=== PATIENT | male | born 1955 | race Caucasian/White ===

== ENCOUNTER 2019-12-05 19:24 | Inpatient (IN) | payer BC ==
[2019-12-05] MEDS ORDERED: ONDANSETRON HCL INJ/PF 4 MG/2 ML SDV IV ONE (20:41)
[2019-12-05] MEDS ORDERED: MORPHINE SULFATE 10 MG/ML INJ IV ONE (20:41)
[2019-12-05] MEDS ORDERED: NORMAL SALINE 1000 ML 1,000 ML IV ONE (20:41)
--- NOTE | 2019-12-05 20:43 | ER Document Report ---
ED GI/ - General Chief Complaint: Constipation Stated Complaint: ABDOMINAL PAIN Time Seen by Provider: 12/05/19 20:34 Notes: Patient is a 64-year-old male that comes to the emergency department for chief complaint of abdominal pain and swelling. He states that since Friday he started having abdominal pain and over the past 2 days his abdomen has become much more tender and swollen, pain is in the mid to lower abdomen mainly. He vomited once today, he had about 4-5 loose nonbloody stools today as well. He states he felt like he could not eat today. He states he also had some chills today. He denies chest pain, flank pain, difficulty breathing, urinary symptoms, or any other complaints. He states he has never had any surgeries in cluding abdominal, he does not take any medications, he believes he never went to a primary care provider. He smokes, he drinks alcohol about 3 times a week, he denies recreational drugs. Significant other at bedside. TRAVEL OUTSIDE OF THE [place] IN LAST 30 DAYS: No - Related Data Allergies/Adverse Reactions: No Known Allergies Allergy (Unverified 12/05/19 20:00) Past Medical History - General Information source: Patient - Social History Smoking Status: Current Every Day Smoker Frequency of alcohol use: Heavy Drug Abuse: None Lives with: Spouse/Significant other Family History: Reviewed & Not Pertinent Patient has suicidal ideation: No Patient has homicidal ideation: No Surgical Hx: Negative Review of Systems - Review of Systems Constitutional: No symptoms reported EENT: No symptoms reported Cardiovascular: No symptoms reported Respiratory: No symptoms reported Gastrointestinal: See HPI Genitourinary: No symptoms reported Male Genitourinary: No symptoms reported Musculoskeletal: No symptoms reported Skin: No symptoms reported Hematologic/Lymphatic: No symptoms reported Neurological/Psychological: No symptoms reported Physical Exam - Vital signs Vitals: Pulse Ox 93 12/05/19 19:40 - Notes Notes: GENERAL: Very disheveled, appears uncomfortable but is not in severe distress HEAD: Normocephalic, atraumatic. EYES: Pupils equal, round, and reactive to light. Extraocular movements intact. ENT: Oral mucosa very dry, tongue midline. Oropharynx unremarkable. Airway patent. LUNGS: Clear to auscultation bilaterally, no wheezes, rales, or rhonchi. No respiratory distress. HEART: Regular rate and rhythm. No murmur ABDOMEN: Abdomen is distended and moderately tender diffusely but there is no pa rticular area of guarding. Bowel sounds are still present but quiet. EXTREMITIES: Moves all 4 extremities spontaneously. No edema, normal radial and dorsalis pedis pulses bilaterally. No cyanosis. BACK: no cervical, thoracic, lumbar midline tenderness. No saddle anesthesia, normal distal neurovascular exam. Moves all extremities in full range of motion. NEUROLOGICAL: Alert and oriented x3. Normal speech. Cranial nerves II through XII grossly intact. PSYCH: Normal affect, normal mood. SKIN: Warm, dry, normal turgor. No rashes or lesions noted. Course - Re-evaluation Re-evalutation: Patient is disheveled, somewhat ill-appearing, appears to be uncomfortable, has a distended abdomen with diffuse tenderness. On reevaluation after IV fluids and medications patient is much more comfortable in appearance. CBC nonspecific with very elevated hemoglobin which I suspect is from dehydration and smoking. Urine does show 80 ketones and elevated specific gravity. Chemistry nonspecific with bicarb of 20 and borderline glucose. Acute abdominal series showing possible developing obstruction. CT with IV and oral contrast performed because of patient's concerning abdomen. Patient tolerated the contrast well and did not vomit. CAT scan results showing severe diverticulitis with a lot of inflammation which appears to be causing a partial small bowel obstruction. Patient has never had abdominal surgery. There is no abscess, perforation, or concerning finding otherwise. Started on antibiotics. Patient tolerated his p.o. without difficulty. I discussed with Dr. Salamanca. He recommends admission to the hospitalist. Discussed with patient and , they state strong agreement with this. Will discuss with hospitalist. Discussed with Dr. Woods, patient accepted to the medical floor full admission. - Vital Signs Vital signs: Temp Pulse Resp BP Pulse Ox 97.8 F 97 19 151/80 H 97 12/06/19 04:15 12/06/19 04:15 12/06/19 04:15 12/06/19 04:15 12/06/19 04:15 - Laboratory Result Diagrams: 12/05/19 19:36 12/05/19 19:36 Laboratory results interpreted by me: 12/05/19 12/05/19 12/05/19 19:36 19:36 22:20 Hgb 19.2 H Hct 55.6 H MCV 105 H MCH 36.2 H Seg Neuts % (Manual) 90 H Lymphocytes % (Manual) 5 L Monocytes % (Manual) 1 L Abs Lymphs (Manual) 0.3 L Carbon Dioxide 20 L Glucose 178 H Total Bilirubin 2.2 H Direct Bilirubin 0.9 H Lipase < 10.0 L Urine Protein 100 H Urine Glucose (UA) 50 H Urine Ketones 80 H Urine Bilirubin SMALL H Urine Urobilinogen 4.0 H Urine Ascorbic Acid 40 H Discharge - Discharge Clinical Impression: Diverticulitis, Partial small bowel obstruction, Dehydration Abdominal pain Qualifiers: Abdominal location: generalized Qualified Code(s): R10.84 - Generalized abdominal pain Condition: Stable Disposition: ADMITTED INPATIENT Admitting Provider: Chuck (Hospitalist) Unit Admitted: Medical Floor
[2019-12-05 21:16] LABS: ALBUMIN 3.7 g/dL (3.5-5.0); ALKALINE PHOSPHATASE 123 U/L (38-126); ANION GAP 14 (5-19); ASPARTATE AMINO TRANSFERASE 28 U/L (17-59); BILIRUBIN,DIRECT 0.9 mg/dL (0.0-0.4); BILIRUBIN,TOTAL 2.2 mg/dL (0.2-1.3); BLOOD UREA NITROGEN 14 mg/dL (7-20); CALCIUM 9.2 mg/dL (8.4-10.2); CARBON DIOXIDE 20 mmol/L (22-30); CHLORIDE 104 mmol/L (98-107); GLUCOSE 178 mg/dL (75-110)
[2019-12-05 21:29] LABS: HEMOGLOBIN 19.2 g/dL (13.5-17.0); MEAN CORPUSCULAR HEMOGLOBIN 36.2 pg (27.0-33.4); MEAN CORPUSCULAR HGB CONC 34.5 g/dL (32.0-36.0); MEAN CORPUSCULAR VOLUME 105 fl (80-97); PLATELET COUNT 237 10^3/uL (150-450); RED CELL DISTRIBUTION WIDTH 13.3 % (11.5-14.0); WHITE BLOOD COUNT 6.2 10^3/uL (4.0-10.5)
--- NOTE | 2019-12-05 21:43 | RADIOLOGY REPORT (SQ) ---
EXAM DESCRIPTION: XR ABDOMEN SUPINE AND ERECT WITH CHEST (ABD ACUTE SERIES) COMPLETED DATE/TME: 12/05/2019 20:40 CLINICAL HISTORY: 64 years Male ,abdominal pain and swelling COMPARISON: None. TECHNIQUE: Frontal view chest x-ray and two views of the abdomen. FINDINGS: The cardiomediastinal silhouette appears unremarkable. No consolidating infiltrates or pleural effusions. There is distention of small bowel centrally measuring approximately 3.8 cm. Findings are concerning for developing obstruction. No significant gas is seen in the distal small bowel. IMPRESSION: Findings suggesting developing small bowel obstruction
[2019-12-05 21:59] LABS: HEMATOCRIT 55.6 % (37.9-51.0)
[2019-12-05 22:04] LABS: ABSOLUTE LYMPHOCYTES# (MANUAL) 0.3 10^3/uL (0.5-4.7); ABSOLUTE MONOCYTES # (MANUAL) 0.1 10^3/uL (0.1-1.4); BAND NEUTROPHILS % (MANUAL) 4 % (3-5); BASOPHILS % (MANUAL) 0 % (0-2); EOSINOPHILS % (MANUAL) 0 % (0-6); LYMPHOCYTES % (MANUAL) 5 % (13-45); MONOCYTES % (MANUAL) 1 % (3-13); SEGMENTED NEUTROPHILS % (MAN) 90 % (42-78); TOTAL CELLS COUNTED 100
[2019-12-05 22:06] LABS: PLATELET COMMENT ADEQUATE; RBC MORPHOLOGY COMMENT NORMO-CYTIC/CHROMIC
[2019-12-05 22:56] LABS: APPEARANCE,URINE SLIGHTLY-CLOUDY; BILIRUBIN,URINE SMALL (NEGATIVE); COLOR,URINE AMBER; GLUCOSE, URINE 50 mg/dL (NEGATIVE); KETONES,URINE 80 mg/dL (NEGATIVE); LEUKOCYTE ESTERASE,URINE NEGATIVE (NEGATIVE); NITRITE,URINE NEGATIVE (NEGATIVE); PROTEIN,URINE 100 mg/dL (NEGATIVE)
[2019-12-06] MEDS ORDERED: NORMAL SALINE 1000 ML 1,000 ML IV ONE (00:19)
[2019-12-06] MEDS ORDERED: CIPROFLOXACIN 400 MG/D5W RTU 400 MG/200 ML RTUPB IV ONE (01:06)
--- NOTE | 2019-12-06 01:08 | RADIOLOGY REPORT (SQ) ---
EXAM DESCRIPTION: CT scan of the abdomen and pelvis with IV contrast CLINICAL HISTORY: 64 years Male; abdominal swelling, abnormal abd x-ray TECHNIQUE: CT of the abdomen and pelvis with intravenous contrast. Delayed imaging was also performed. All CT scans at this facility use dose modulation, iterative reconstruction, and/or weight based dosing when appropriate to reduce radiation dose to as low as reasonably achievable. This exam was performed according to our department optimization program which includes automated exposure control, adjustment of the mA and/or kv according to patient size and/or use of iterative reconstruction technique. COMPARISON: None. FINDINGS: Lower chest: Mild volume loss is present in the lung bases right greater than left. Heart size is within normal limits. Oral contrast is noted in the distal esophagus suggesting gastroesophageal reflux. Abdomen: Liver and biliary tree: Mild diffuse fatty infiltration of the liver. The gallbladder is unremarkable. Portal vein and hepatic veins are patent. Pancreas: Normal Spleen:Within normal limits Kidneys: Kidneys are normal in size, shape and position. No stones. No mass or hydronephrosis. Symmetric renal enhancement bilaterally. Adrenal glands:Within normal limits Vascular structures: Scattered vascular calcifications in the aorta and iliac vessels. Mesenteric vessels are patent. Retroperitoneum: No mass or lymphadenopathy Abdominal wall: Bilateral fat-containing inguinal hernias. GI: Bowel gas pattern is abnormal. There is diverticula in the colon and there is a long segment of inflammation involving the sigmoid colon with extensive pericolonic fat. Inflammation extends superiorly from the colon and results in bowel wall thickening in the small bowel which sits adjacent to the colon. Overall the findings result in a partial small bowel obstruction with the transition zone seen at the low pelvis. The bowel narrowing appears to be related to inflammation from the diverticulitis. Appendix: The appendix appears normal. General: Ascites is present in the pelvis and in the paracolic gutters bilaterally. No definitive free intraperitoneal air. No abscess. Pelvis: Lymph nodes: No mass or lymphadenopathy Bladder: The bladder is mostly empty Pelvis: No pelvic mass or adenopathy. Bones: L3 compression fracture is noted which appears chronic. No destructive bone changes. IMPRESSION: 1. Extensive inflammation involving the sigmoid colon in association with diverticula consistent with diverticulitis. This results in inflammation and narrowing of the small bowel adjacent to the colon and a subsequent partial small bowel obstruction. 2. Fatty infiltration of the liver. 3. Mild volume loss in the lung bases bilaterally. THIS REPORT CONTAINS FINDINGS THAT MAY BE CRITICAL TO PATIENT CARE: The findings were verbally discussed via telephone conference with CYRUS MARTIN at 12:05 AM CDT on 12/06/2019 .
[2019-12-06] MEDS ORDERED: METRONIDAZOLE 500 MG/NS RTU 500 MG/100 ML RTUPB IV ONE (01:30)
[2019-12-06] MEDS ORDERED: MORPHINE SULFATE 10 MG/ML INJ IV ONE (02:11)
[2019-12-06] MEDS ORDERED: ONDANSETRON HCL INJ/PF 4 MG/2 ML SDV IV ONE (02:11)
[2019-12-06] MEDS ORDERED: DEXTROSE 40% GEL 15 GM TUBE PO PRN ×2 (03:11)
[2019-12-06] MEDS ORDERED: GLUCAGON,HUMAN RECOMB 1 MG INJ SUBCUT PRN (03:11)
[2019-12-06] MEDS ORDERED: PROMETHAZINE HCL INJ 25 MG/1 ML VIAL IV PRN (03:11)
[2019-12-06] MEDS ORDERED: DEXTROSE 50%-WATER 25 GM/50 ML DISP.SYRIN IV PRN ×2 (03:11)
[2019-12-06] MEDS ORDERED: ACETAMINOPHEN 325 MG TABLET PO PRN (03:11)
[2019-12-06] MEDS ORDERED: LORAZEPAM INJ 2 MG/1 ML VIAL IV PRN (03:17)
--- NOTE | 2019-12-06 03:33 | PDOC H&P ---
History of Present Illness Admission Date/PCP: 12/06/19 02:42 Patient complains of: Abdominal pain History of Present Illness: AMARILIS AL is a 64 year old male his only past medical history is alcoholism. He reports that he felt fine . Friday he was having difficulty having a bowel movement. The pain began on Friday and worsened. On Friday he was having diarrhea and lost his appetite. Friday he felt better transiently but then got much worse. He started having fever and chills. His abdominal pain was increasing. He had had nothing by mouth for almost 2 days. He then proceeded to the emergency department. Evaluation revealed a normal white blood cell count but his hemoglobin was 19.2 with a hematocrit of 55.6. Platelets were normal at 237. His chemistry profile showed an elevated glucose at 178 with a total bilirubin of 2.2. CT scan of the abdomen revealed diverticulitis. He was referred to the hospital service for admission. Past Medical History Cardiac Medical History: Reports: None Psychiatric Medical History: Reports: Alcohol Dependency, Tobacco Dependency Past Surgical History Past Surgical History: Reports: None Social History Information Source: Patient Lives with: Spouse/Significant other Smoking Status: Current Every Day Smoker Electronic Cigarette use?: No Frequency of Alcohol Use: Social Hx Recreational Drug Use: No Hx Prescription Drug Abuse: No - Advance Directive Resuscitation Status: Full Code Surrogate healthcare decision maker:: The patient's would be the dedicated decision maker. Family History Family History: DM, Other - Alzheimer's Parental Family History Reviewed: Yes Children Family History Reviewed: Yes Sibling(s) Family History Reviewed.: Yes Medication/Allergy Allergies/Adverse Reactions: No Known Allergies Allergy (Unverified 12/05/19 20:00) Review of Systems All systems: reviewed and no additional remarkable complaints except as stated Constitutional: PRESENT: chills, fever(s) Gastrointestinal: PRESENT: abdominal pain, constipation Physical Exam Vital Signs: Temp Pulse Resp BP Pulse Ox 98.6 F 98 23 H 121/76 96 12/05/19 21:57 12/05/19 21:57 12/06/19 00:01 12/06/19 00:01 12/06/19 00:01 Intake & Output 12/04/19 12/05/19 12/06/19 05:59 06:59 06:59 Intake Total 2200 Balance 2200 Weight 63.5 kg General appearance: PRESENT: cooperative, mild distress, well-developed Head exam: PRESENT: atraumatic, normocephalic Eye exam: PRESENT: conjunctiva pink, EOMI, PERRLA. ABSENT: nystagmus, scleral icterus Ear exam: PRESENT: normal external ear exam. ABSENT: bleeding, drainage Mouth exam: PRESENT: dry mucosa, tongue midline, other - Lips are dry and cracked Teeth exam: PRESENT: poor dentation Neck exam: PRESENT: full ROM. ABSENT: carotid bruit, JVD, lymphadenopathy Respiratory exam: PRESENT: clear to auscultation carola, symmetrical, unlabored. ABSENT: prolonged expiratory phas, rales, rhonchi, tachypnea, wheezes Cardiovascular exam: PRESENT: RRR, +S1, +S2, systolic murmur - 2/6. ABSENT: diastolic murmur Pulses: PRESENT: normal radial pulses GI/Abdominal exam: PRESENT: distended, firm, hypoactive bowel sounds, tenderness - Throughout the abdomen. Greatest at the left lower quadrant.. ABSENT: guarding Rectal exam: PRESENT: deferred Gentrourinary exam: ABSENT: indwelling catheter Extremities exam: PRESENT: full ROM. ABSENT: clubbing, pedal edema Musculoskeletal exam: PRESENT: ambulatory, full ROM, normal inspection. ABSENT: deformity Neurological exam: PRESENT: alert, awake, oriented to person, oriented to place, oriented to time, oriented to situation, CN II-XII grossly intact. ABSENT: altered, motor sensory deficit Psychiatric exam: PRESENT: appropriate affect, normal mood. ABSENT: agitated, anxious Focused psych exam: ABSENT: delusional, paranoid, restlessness Skin exam: PRESENT: dry, normal color, warm. ABSENT: rash Results Laboratory Results: 12/05/19 19:36 12/05/19 19:36 12/05/19 12/05/19 12/05/19 19:36 19:36 22:20 WBC 6.2 RBC 5.30 Hgb 19.2 H Hct 55.6 H MCV 105 H MCH 36.2 H MCHC 34.5 RDW 13.3 Plt Count 237 Seg Neutrophils % Not Reportable Sodium 137.9 Potassium 4.0 Chloride 104 Carbon Dioxide 20 L Anion Gap 14 BUN 14 Creatinine 0.59 Est GFR ( Amer) > 60 Glucose 178 H Calcium 9.2 Total Bilirubin 2.2 H AST 28 Alkaline Phosphatase 123 Total Protein 7.0 Albumin 3.7 Lipase < 10.0 L Urine Color [place] Urine Appearance SLIGHTLY-CLOUDY Urine pH 5.0 Ur Specific [place] 1.030 Urine Protein 100 H Urine Glucose (UA) 50 H Urine Ketones 80 H Urine Blood NEGATIVE Urine Nitrite NEGATIVE Ur Leukocyte Esterase NEGATIVE Urine WBC (Auto) 7 Urine RBC (Auto) 3 Impressions: Abdomen/Pelvis CT 12/05/19 00:00 IMPRESSION: 1. Extensive inflammation involving the sigmoid colon in association with diverticula consistent with diverticulitis. This results in inflammation and narrowing of the small bowel adjacent to the colon and a subsequent partial small bowel obstruction. 2. Fatty infiltration of the liver. 3. Mild volume loss in the lung bases bilaterally. THIS REPORT CONTAINS FINDINGS THAT MAY BE CRITICAL TO PATIENT CARE: The findings were verbally discussed via telephone conference with CYRUS MARTIN at 12:05 AM CDT on 12/06/2019 . Acute Abdomen Series 12/05/19 20:40 IMPRESSION: Findings suggesting developing small bowel obstruction Assessment and Plan - Diagnosis (1) Diverticulitis Is this a current diagnosis for this admission?: Yes Plan: 12/06/2019 Extensive inflammatory changes by CT scan. So much so that it may be causing a partial small bowel obstruction. Ciprofloxacin and metronidazole have begun. Patient will be n.p.o. for the time being. Aggressive IV fluids. (2) Partial small bowel obstruction Is this a current diagnosis for this admission?: Yes Plan: 12/06/2019 It appears to be related to the inflammation in the colon. The patient will be at bowel rest. Will monitor closely. If appropriate we will order a surgical consult. (3) Polycythemia Is this a current diagnosis for this admission?: Yes Plan: 12/06/2019 Likely secondary to smoking and exaggerated with the dehydration. Monitor hemoglobin with IV fluids. This should dilute the hemoglobin hopefully back to the normal range. (4) Hyperglycemia Is this a current diagnosis for this admission?: Yes Plan: 12/06/2019 There is a strong family history of diabetes. I have ordered Accu-Cheks, sliding scale coverage and hemoglobin A1c level. (5) Abdominal pain Qualifiers: Abdominal location: generalized Qualified Code(s): R10.84 - Generalized abdominal pain Is this a current diagnosis for this admission?: Yes Plan: 12/06/2019 Secondary to diverticulitis. IV morphine has been ordered. (6) Dehydration Is this a current diagnosis for this admission?: Yes Plan: 12/06/2019 The patient has had minimal intake over the last 48 hours. Aggressive IV fluids. Advance diet when it is appropriate based on the abdominal pain function. (7) Tobacco dependence due to cigarettes Is this a current diagnosis for this admission?: Yes Plan: 12/06/2019 Have nicotine patch available. - Time Time Spent with patient: 35 or more minutes Smoking Cessation Education: 3 to 10 minutes Medications reviewed and adjusted accordingly: Yes Anticipated discharge: Home with Homehealth - Inpatient Certification Based on my medical assessment, after consideration of the patient's comorbidities, presenting symptoms, or acuity I expect that the services needed warrant INPATIENT care.: Yes I certify that my determination is in accordance with my understanding of Medicare's requirements for reasonable and necessary INPATIENT services [42 CFR 412.3e].: Yes Medical Necessity: Need For IV Fluids, Need for Pain Control, Need for IV Antibiotics Post Hospital Care: D/C Hand Profiler Documentation
[2019-12-06] MEDS: NORMAL SALINE 1000 ML 1,000 ML IV PRN ×3 (05:09→18:54)
[2019-12-06] MEDS: INSULIN REG, HUMAN 100 UNIT/ML 3 ML VIAL (PYX) SUBCUT SCH ×2 (09:14→18:42)
[2019-12-06] MEDS: PANTOPRAZOLE SODIUM 40 MG VIAL IV SCH (09:24)
[2019-12-06] MEDS: METRONIDAZOLE 500 MG/NS RTU 500 MG/100 ML RTUPB IV SCH ×3 (09:25→20:39)
[2019-12-06] MEDS: ENOXAPARIN SODIUM INJ 40 MG/0.4 ML DISP.SYRIN SUBCUT SCH (09:32)
[2019-12-06] MEDS: CIPROFLOXACIN 400 MG/D5W RTU 400 MG/200 ML RTUPB IV SCH ×2 (10:30→22:09)
[2019-12-06] MEDS: MORPHINE SULFATE 10 MG/ML INJ IV PRN ×2 (10:54→22:08)
--- NOTE | 2019-12-06 14:58 | RADIOLOGY REPORT (SQ) ---
EXAM DESCRIPTION: ABDOMEN 2 VIEWS COMPLETED DATE/TIME: 12/06/2019 2:07 pm REASON FOR STUDY: SBO COMPARISON: 12/05/2019, same day CT NUMBER OF VIEWS: Two views. TECHNIQUE: Supine and erect/decubitus radiographic images of the abdomen acquired. LIMITATIONS: None. FINDINGS: FREE AIR: None. LUNG BASES: Minimal linear left basilar opacities, likely atelectasis or scarring. BOWEL GAS PATTERN: There are multiple loops of dilated small bowel within the central abdomen measuri ng up to 4.7 cm, increased from prior radiograph. Contrast noted throughout the proximal colon CALCIFICATIONS: No suspicious calcifications. SOFT TISSUES: No gross mass or suggestion of organomegaly. HARDWARE: None in the abdomen. BONES: No acute fracture. No worrisome bone lesions. OTHER: No other significant finding. IMPRESSION: Increased dilated small bowel loops throughout the central abdomen measuring up to 4.7 c m. There has been progression of oral contrast now noted throughout the proximal colon suggestive of partial/ intermittent obstructive process versus localized ileus. TECHNICAL DOCUMENTATION: JOB ID: [id number] 2010 [email or web address]- All Rights Reserved Reading location - IP/workstation name: [email or web address]
--- NOTE | 2019-12-06 17:43 | Progress Note ---
Provider Note Provider Note: Abdominal x-ray reveals increased dilated small bowel loops throughout the central abdomen. Is suggest partial intermittent obstructive process versus localized ileus. Patient is hemodynamically stable and his symptoms have improved. I will defer any surgical consult at this time however this should be reevaluated and considered going forward. Repeat abdominal x-ray or CT abdomen should also be considered in a.m. especially if patient's symptoms worsen Temp Pulse Resp BP Pulse Ox 98.4 F 94 16 148/81 H 94 12/06/19 16:01 12/06/19 16:01 12/06/19 16:01 12/06/19 16:01 12/06/19 16:01 Intake & Output 12/05/19 12/06/19 12/07/19 06:59 06:59 06:59 Intake Total 2300 1047 Balance 2300 1047 Weight 64.6 kg Weight/Height Weight 64.6 kg Height 5 ft 2 in Pulse Ox 93 12/05/19 19:40 Awake and alert Lungs CTA [id number] Abd- distended, vague mild tenderness [employer]- intact
[2019-12-07] MEDS: METRONIDAZOLE 500 MG/NS RTU 500 MG/100 ML RTUPB IV SCH ×4 (02:24→21:39)
[2019-12-07] MEDS: NORMAL SALINE 1000 ML 1,000 ML IV PRN ×2 (04:40→12:37)
[2019-12-07 05:42] LABS: ABSOLUTE LYMPHOCYTES (AUTO) 0.6 10^3/uL (0.5-4.7); ABSOLUTE MONOCYTES (AUTO) 1.3 10^3/uL (0.1-1.4); ABSOLUTE NEUT (AUTO) 9.7 10^3/uL (1.7-8.2); BASOPHILS % (AUTO) 0.2 % (0-2); EOSINOPHILS % (AUTO) 0.1 % (0-6); LYMPHOCYTES % (AUTO) 5.4 % (13-45); MEAN CORPUSCULAR HEMOGLOBIN 37.4 pg (27.0-33.4); MEAN CORPUSCULAR HGB CONC 35.5 g/dL (32.0-36.0); MEAN CORPUSCULAR VOLUME 106 fl (80-97); MONOCYTES % (AUTO) 11.4 % (3-13); PLATELET COUNT 222 10^3/uL (150-450); RED BLOOD COUNT 4.17 10^6/uL (4.35-5.55); RED CELL DISTRIBUTION WIDTH 13.3 % (11.5-14.0); SEGMENTED NEUTROPHILS % (AUTO) 82.9 % (42-78); TOTAL CELLS COUNTED % (AUTO) 100 %; WHITE BLOOD COUNT 11.7 10^3/uL (4.0-10.5)
[2019-12-07 05:44] LABS: HEMOGLOBIN 15.6 g/dL (13.5-17.0)
[2019-12-07 06:02] LABS: ANION GAP 11 (5-19); BLOOD UREA NITROGEN 10 mg/dL (7-20); CALCIUM 8.3 mg/dL (8.4-10.2); CARBON DIOXIDE 25 mmol/L (22-30); CHLORIDE 102 mmol/L (98-107); GLUCOSE 91 mg/dL (75-110); POTASSIUM 4.1 mmol/L (3.6-5.0)
[2019-12-07] MEDS: INSULIN REG, HUMAN 100 UNIT/ML 3 ML VIAL (PYX) SUBCUT SCH ×2 (07:35→17:01)
[2019-12-07] MEDS: MORPHINE SULFATE 10 MG/ML INJ IV PRN (09:11)
[2019-12-07] MEDS: ENOXAPARIN SODIUM INJ 40 MG/0.4 ML DISP.SYRIN SUBCUT SCH (11:16)
[2019-12-07] MEDS: PANTOPRAZOLE SODIUM 40 MG VIAL IV SCH (11:20)
[2019-12-07] MEDS: CIPROFLOXACIN 400 MG/D5W RTU 400 MG/200 ML RTUPB IV SCH ×2 (11:20→21:39)
--- NOTE | 2019-12-07 11:37 | RADIOLOGY REPORT (SQ) ---
EXAM DESCRIPTION: KUB/ABDOMEN (SINGLE VIEW) COMPLETED DATE/TIME: 12/07/2019 10:56 am REASON FOR STUDY: ileus COMPARISON: CT abdomen pelvis 12/06/2019 Abdominal films 12/05/2019, 12/06/2019 NUMBER OF VIEWS: One view. TECHNIQUE: Supine radiographic image of the abdomen acquired. LIMITATIONS: None. FINDINGS: BOWEL GAS PATTERN: Persistent gaseous distension of small bowel loops out of proportion to colon. Findings likely represent an ileus, oral contrast given for CT last night is seen in the col on. CALCIFICATIONS: No suspicious calcifications. SOFT TISSUES: No gross mass or suggestion of organomegaly. HARDWARE: None in the abdomen. BONES: No acute fracture. No worrisome bone lesions. OTHER: No other significant finding. IMPRESSION: Persistent gaseous distension of proximal and mid small bowel loops. Finding likely rep resent ileus. Partial small bowel obstruction considered less likely given that the oral contrast fr om CT last night is now in the colon. TECHNICAL DOCUMENTATION: JOB ID: [id number] 2010 [employer]- All Rights Reserved Reading location - IP/workstation name: [email or web address]
--- NOTE | 2019-12-07 12:39 | PDOC PROGRESS REPORT ---
Subjective Progress Note for:: 12/07/19 Subjective:: 64 year old male his only past medical history is alcoholism. He reports that he felt fine . Friday he was having difficulty having a bowel movement. The pain began on Friday and worsened. On Friday he was having diarrhea and lost his appetite. Friday he felt better transiently but then got much worse. He started having fever and chills. His abdominal pain was increasing. He had had nothing by mouth for almost 2 days. He then proceeded to the emergency department. Evaluation revealed a normal white blood cell count but his hemoglobin was 19.2 with a hematocrit of 55.6. Platelets were normal at 237. His chemistry profile showed an elevated glucose at 178 with a total bilirubin of 2.2. CT scan of the abdomen revealed diverticulitis. He was referred to the hospital service for admission. 12/07/2019 patient went for a KUB today report came back as persistent gaseous distention of proximal and mid small bowel loops. Representing ileus. I discussed the plan with Dr. Reed he recommended small bowel series with Grastrografin. If it is abnormal we are going to consult him tomorrow. he does not have any bowel movement so far. Reason For Visit: DIVERTICULITIS,DEHYDRATION,POLYCYTHEMIA,ABDOMINAL Physical Exam Vital Signs: Temp Pulse Resp BP Pulse Ox 98.4 F 99 20 144/84 H 92 12/06/19 23:14 12/06/19 23:14 12/06/19 23:14 12/06/19 23:14 12/06/19 23:14 Intake & Output 12/06/19 12/07/19 12/08/19 06:59 06:59 06:59 Intake Total 2300 3547 100 Balance 2300 3547 100 Weight 64.6 kg 60.6 kg General appearance: PRESENT: no acute distress, well-developed Head exam: PRESENT: atraumatic Eye exam: PRESENT: PERRLA Mouth exam: PRESENT: moist, tongue midline Neck exam: ABSENT: carotid bruit, JVD, lymphadenopathy, thyromegaly Respiratory exam: PRESENT: decreased breath sounds Cardiovascular exam: PRESENT: RRR. ABSENT: diastolic murmur, rubs, systolic murmur GI/Abdominal exam: PRESENT: other - Distended abdomen bloated abdomen with high- pitched bowel sounds. Rectal exam: PRESENT: deferred Extremities exam: PRESENT: full ROM. ABSENT: calf tenderness, clubbing, pedal edema Neurological exam: PRESENT: alert, awake, oriented to person, oriented to place, oriented to time, oriented to situation, CN II-XII grossly intact. ABSENT: motor sensory deficit Psychiatric exam: PRESENT: appropriate affect, normal mood. ABSENT: homicidal ideation, suicidal ideation Results Laboratory Results: 12/07/19 04:53 12/07/19 04:53 12/07/19 12/07/19 04:53 04:53 WBC 11.7 H RBC 4.17 L Hgb 15.6 D Hct 44.0 MCV 106 H MCH 37.4 H MCHC 35.5 RDW 13.3 Plt Count 222 Seg Neutrophils % 82.9 H Sodium 137.5 Potassium 4.1 Chloride 102 Carbon Dioxide 25 Anion Gap 11 BUN 10 Creatinine 0.65 Est GFR ( Amer) > 60 Glucose 91 Calcium 8.3 L Magnesium 1.9 Impressions: Abdomen/Pelvis CT 12/05/19 00:00 IMPRESSION: 1. Extensive inflammation involving the sigmoid colon in association with diverticula consistent with diverticulitis. This results in inflammation and narrowing of the small bowel adjacent to the colon and a subsequent partial small bowel obstruction. 2. Fatty infiltration of the liver. 3. Mild volume loss in the lung bases bilaterally. THIS REPORT CONTAINS FINDINGS THAT MAY BE CRITICAL TO PATIENT CARE: The findings were verbally discussed via telephone conference with CYRUS MARTIN at 12:05 AM CDT on 12/06/2019 . Acute Abdomen Series 12/05/19 20:40 IMPRESSION: Findings suggesting developing small bowel obstruction Abdomen X-Ray 12/06/19 00:00 IMPRESSION: Increased dilated small bowel loops throughout the central abdomen measuring up to 4.7 cm. There has been progression of oral contrast now noted throughout the proximal colon suggestive of partial/ intermittent obstructive process versus localized ileus. KUB X-Ray 12/07/19 00:00 IMPRESSION: Persistent gaseous distension of proximal and mid small bowel loops. Finding likely represent ileus. Partial small bowel obstruction considered less likely given that the oral contrast from CT last night is now in the colon. Assessment and Plan - Diagnosis (1) Diverticulitis Is this a current diagnosis for this admission?: Yes Plan: 12/06/2019 Extensive inflammatory changes by CT scan. So much so that it may be causing a partial small bowel obstruction. Ciprofloxacin and metronidazole have begun. Patient will be n.p.o. for the time being. Aggressive IV fluids. 12/07/2019-patient admitted with diverticulitis and developed a small bowel obstruction. KUB done this morning indicating persistent distended bowels. Dr. Reed was consulted and he recommended small bowel series with Grastrografin. Needed surgery will be consulted tomorrow. Patient is on Cipro and Flagyl plan is to continue the antibiotic therapy at this time. (2) Partial small bowel obstruction Is this a current diagnosis for this admission?: Yes Plan: 12/06/2019 It appears to be related to the inflammation in the colon. The patient will be at bowel rest. Will monitor closely. If appropriate we will order a surgical consult. 12/07/2019-patient has persistent small bowel obstruction. Plan to do the small bowel series with Grastrografin. (3) Polycythemia Is this a current diagnosis for this admission?: No Plan: 12/06/2019 Likely secondary to smoking and exaggerated with the dehydration. Monitor hemoglobin with IV fluids. This should dilute the hemoglobin hopefully back to the normal range. (4) Abdominal pain Qualifiers: Abdominal location: generalized Qualified Code(s): R10.84 - Generalized abdominal pain Is this a current diagnosis for this admission?: Yes Plan: 12/06/2019 Secondary to diverticulitis. IV morphine has been ordered. 12/07/2019-patient complained of abdominal pain at the time of admission. Denies any abdominal pain per se complaining of mild pain on gentle palpation. Rebound tenderness present. No guarding is present. (5) Tobacco dependence due to cigarettes Is this a current diagnosis for this admission?: No Plan: 12/06/2019 Have nicotine patch available. 05/08/2020-smoking counseling was provided for more than 20 minutes. Strongly advised to quit smoking.
--- NOTE | 2019-12-07 14:55 | PDOC CONSULTATION ---
Consultation Consult Date: 12/07/19 Provider Consulted: LUDA MARIE Consult reason:: diverticulits History of Present Illness Admission Date/PCP: 12/06/19 02:42 History of Present Illness: AMARILIS AL is a 64 year old male Past Medical History Cardiac Medical History: Reports: None Psychiatric Medical History: Reports: Alcohol Dependency, Tobacco Dependency Past Surgical History Past Surgical History: Reports: None Social History Lives with: Spouse/Significant other Smoking Status: Current Every Day Smoker Cigarettes Packs Per Day: 0.5 Electronic Cigarette use?: No Frequency of Alcohol Use: Social Hx Recreational Drug Use: No Drugs: None Hx Prescription Drug Abuse: No - Advance Directive Resuscitation Status: Full Code Family History Family History: Reviewed & Not Pertinent Parental Family History Reviewed: No Children Family History Reviewed: NA Sibling(s) Family History Reviewed.: NA Medication/Allergy Home Medications: No Home Medications 12/06/19 Allergies/Adverse Reactions: No Known Allergies Allergy (Unverified 12/05/19 20:00) Review of Systems Constitutional: PRESENT: fatigue, weakness Nose, Mouth, and Throat: ABSENT: as per HPI, headache(s), mouth pain, sore throat, vertigo, other Breasts: ABSENT: as per HPI, other Cardiovascular: ABSENT: as per HPI, chest pain, dyspnea on exertion, edema, orthropnea, palpitations, other Respiratory: ABSENT: as per HPI, cough, dyspnea, hemoptysis, sputum, other Gastrointestinal: PRESENT: abdominal pain, bloating Genitourinary: ABSENT: as per HPI, difficulty urinating, dysuria, hematuria, nocturia, other Musculoskeletal: ABSENT: as per HPI, back pain, deformity, joint swelling, muscle weakness, other Integumentary: ABSENT: as per HPI, diaphoresis, erythema, lesions, pruritus, rash, wounds, other Neurological: ABSENT: as per HPI, abnormal gait, abnormal movements, abnormal speech, confusion, convulsions, dizziness, focal weakness, frequent falls, lack of coordination, memory loss, numbness, paresthesias, restless legs, syncope, tingling, tremor(s), vertigo, weakness, other Endocrine: ABSENT: as per HPI, cold intolerance, flushing, heat intolerance, menstrual abnormalities, polydipsia, polyphagia, polyuria, other Hematologic/Lymphatic: ABSENT: as per HPI, easy bleeding, easy bruising, lymphadenopathy, other Allergic/Immunologic: ABSENT: as per HPI, seasonal rhinorrhea, other Physical Exam Vital Signs: Temp Pulse Resp BP Pulse Ox 98.3 F 105 H 19 162/92 H 91 L 12/07/19 12:19 12/07/19 12:19 12/07/19 12:19 12/07/19 12:19 12/07/19 12:19 Intake & Output 12/06/19 12/07/19 12/08/19 06:59 06:59 06:59 Intake Total 2300 3547 1100 Balance 2300 3547 1100 Weight 64.6 kg 60.6 kg General appearance: PRESENT: mild distress Head exam: PRESENT: normocephalic Eye exam: PRESENT: EOMI Ear exam: PRESENT: normal external ear exam Mouth exam: PRESENT: moist Teeth exam: PRESENT: poor dentation Neck exam: PRESENT: full ROM Respiratory exam: PRESENT: clear to auscultation carola Cardiovascular exam: PRESENT: RRR Pulses: PRESENT: normal radial pulses, normal femoral pulses Vascular exam: PRESENT: normal capillary refill Breast: PRESENT: Normal GI/Abdominal exam: PRESENT: distended, tenderness Rectal exam: PRESENT: deferred Extremities exam: PRESENT: full ROM Musculoskeletal exam: PRESENT: full ROM Neurological exam: PRESENT: alert, awake, oriented to person, oriented to place Psychiatric exam: PRESENT: appropriate affect Skin exam: PRESENT: dry Results Laboratory Results: 12/07/19 04:53 12/07/19 04:53 12/07/19 12/07/19 04:53 04:53 WBC 11.7 H RBC 4.17 L Hgb 15.6 D Hct 44.0 MCV 106 H MCH 37.4 H MCHC 35.5 RDW 13.3 Plt Count 222 Seg Neutrophils % 82.9 H Sodium 137.5 Potassium 4.1 Chloride 102 Carbon Dioxide 25 Anion Gap 11 BUN 10 Creatinine 0.65 Est GFR ( Amer) > 60 Glucose 91 Calcium 8.3 L Magnesium 1.9 Impressions: Abdomen/Pelvis CT 12/05/19 00:00 IMPRESSION: 1. Extensive inflammation involving the sigmoid colon in association with diverticula consistent with diverticulitis. This results in inflammation and narrowing of the small bowel adjacent to the colon and a subsequent partial small bowel obstruction. 2. Fatty infiltration of the liver. 3. Mild volume loss in the lung bases bilaterally. THIS REPORT CONTAINS FINDINGS THAT MAY BE CRITICAL TO PATIENT CARE: The findings were verbally discussed via telephone conference with CYRUS MARTIN at 12:05 AM CDT on 12/06/2019 . Acute Abdomen Series 12/05/19 20:40 IMPRESSION: Findings suggesting developing small bowel obstruction Abdomen X-Ray 12/06/19 00:00 IMPRESSION: Increased dilated small bowel loops throughout the central abdomen measuring up to 4.7 cm. There has been progression of oral contrast now noted throughout the proximal colon suggestive of partial/ intermittent obstructive process versus localized ileus. KUB X-Ray 12/07/19 00:00 IMPRESSION: Persistent gaseous distension of proximal and mid small bowel loops. Finding likely represent ileus. Partial small bowel obstruction co nsidered less likely given that the oral contrast from CT last night is now in the colon. Assessment & Plan - Plan Summary Plan Summary: Patient is perforated diverticulitis CT scan confirms a partial small bowel obstruction secondary to inflammatory mass in the pelvis Recommendation 1. Continue IV antibiotics. 2. Place NG tube to suction low continuous as patient has a dilated small bowel as well as a markedly dilated stomach. 3. At this point patient is not exhibiting any signs of peritonitis his white count remains normal, we will continue close observation
[2019-12-07] MEDS ORDERED: PHARMACY COMMUNICATION ORDER MC NR (15:00)
[2019-12-07] MEDS ORDERED: ACETAMINOPHEN 325 MG TABLET NG PRN (15:00)
--- NOTE | 2019-12-07 17:00 | RADIOLOGY REPORT (SQ) ---
EXAM DESCRIPTION: KUB/ABDOMEN (SINGLE VIEW) COMPLETED DATE/TIME: 12/07/2019 4:41 pm REASON FOR STUDY: Check Placement of NG Tube COMPARISON: Earlier the same day. NUMBER OF VIEWS: One view. TECHNIQUE: Supine radiographic image of the abdomen acquired. LIMITATIONS: None. FINDINGS: BOWEL GAS PATTERN: Gas pattern is unchanged with distended small bowel loops. There is co ntrast throughout the colon. NG tube is now in place. Tip lies in the left upper quadrant most like ly within stomach. CALCIFICATIONS: No suspicious calcifications. SOFT TISSUES: No gross mass or suggestion of organomegaly. HARDWARE: None in the abdomen. BONES: No acute fracture. No worrisome bone lesions. OTHER: No other significant finding. IMPRESSION: NG tube has been placed. No other interval change. Persistent small-bowel distention. TECHNICAL DOCUMENTATION: JOB ID: [id number] 2010 [employer]- All Rights Reserved Reading location - IP/workstation name: [email or web address]
[2019-12-07] MEDS: DIAZEPAM INJ 10 MG/2 ML DISP.SYRIN IV SCH (21:39)
[2019-12-08] MEDS: METRONIDAZOLE 500 MG/NS RTU 500 MG/100 ML RTUPB IV SCH ×4 (03:31→21:23)
[2019-12-08 04:39] LABS: HEMATOCRIT 43.5 % (37.9-51.0); HEMOGLOBIN 15.1 g/dL (13.5-17.0); MEAN CORPUSCULAR HEMOGLOBIN 36.4 pg (27.0-33.4); MEAN CORPUSCULAR HGB CONC 34.6 g/dL (32.0-36.0); MEAN CORPUSCULAR VOLUME 105 fl (80-97); PLATELET COUNT 230 10^3/uL (150-450); RED BLOOD COUNT 4.13 10^6/uL (4.35-5.55); RED CELL DISTRIBUTION WIDTH 12.7 % (11.5-14.0); WHITE BLOOD COUNT 15.9 10^3/uL (4.0-10.5)
[2019-12-08 05:04] LABS: ALBUMIN 2.9 g/dL (3.5-5.0); ALKALINE PHOSPHATASE 78 U/L (38-126); ANION GAP 9 (5-19); ASPARTATE AMINO TRANSFERASE 39 U/L (17-59); BILIRUBIN,DIRECT 0.5 mg/dL (0.0-0.4); BLOOD UREA NITROGEN 10 mg/dL (7-20); CALCIUM 8.5 mg/dL (8.4-10.2); CARBON DIOXIDE 23 mmol/L (22-30); CHLORIDE 104 mmol/L (98-107); GLUCOSE 93 mg/dL (75-110); TOTAL PROTEIN 5.7 g/dL (6.3-8.2)
[2019-12-08 05:05] LABS: ABSOLUTE LYMPHOCYTES# (MANUAL) 0.8 10^3/uL (0.5-4.7); ABSOLUTE MONOCYTES # (MANUAL) 1.6 10^3/uL (0.1-1.4); BASOPHILS % (MANUAL) 0 % (0-2); EOSINOPHILS % (MANUAL) 0 % (0-6); LYMPHOCYTES % (MANUAL) 5 % (13-45); MONOCYTES % (MANUAL) 10 % (3-13); PLATELET COMMENT ADEQUATE; SEGMENTED NEUTROPHILS % (MAN) 85 % (42-78); TOTAL CELLS COUNTED 100
--- NOTE | 2019-12-08 07:30 | PDOC PROGRESS REPORT ---
Subjective Progress Note for:: 12/08/19 Subjective:: feels better passed loose stool x2 Reason For Visit: DIVERTICULITIS,DEHYDRATION,POLYCYTHEMIA,ABDOMINAL Physical Exam Vital Signs: Temp Pulse Resp BP Pulse Ox 97.7 F 90 17 148/88 H 97 12/08/19 06:50 12/08/19 06:50 12/08/19 06:50 12/08/19 06:50 12/08/19 06:50 Intake & Output 12/07/19 12/08/19 12/09/19 06:59 06:59 06:59 Intake Total 3547 1800 Balance 3547 1800 Weight 60.6 kg 64.1 kg General appearance: PRESENT: no acute distress Head exam: PRESENT: normocephalic Eye exam: PRESENT: EOMI Ear exam: PRESENT: normal external ear exam Mouth exam: PRESENT: moist Teeth exam: PRESENT: poor dentation Neck exam: PRESENT: full ROM Respiratory exam: PRESENT: clear to auscultation carola Cardiovascular exam: PRESENT: RRR Breast: PRESENT: Normal GI/Abdominal exam: PRESENT: distended, tenderness Rectal exam: PRESENT: deferred Extremities exam: PRESENT: full ROM Musculoskeletal exam: PRESENT: full ROM Neurological exam: PRESENT: alert, awake, oriented to person, oriented to place Psychiatric exam: PRESENT: appropriate affect Skin exam: PRESENT: dry Results Laboratory Results: 12/08/19 04:07 12/08/19 04:07 12/08/19 12/08/19 04:07 04:07 WBC 15.9 H RBC 4.13 L Hgb 15.1 Hct 43.5 MCV 105 H MCH 36.4 H MCHC 34.6 RDW 12.7 Plt Count 230 Seg Neutrophils % Not Reportable Sodium 135.5 L Potassium 4.0 Chloride 104 Carbon Dioxide 23 Anion Gap 9 BUN 10 Creatinine 0.61 Est GFR ( Amer) > 60 Glucose 93 Calcium 8.5 Magnesium 2.0 Total Bilirubin 1.0 AST 39 Alkaline Phosphatase 78 Total Protein 5.7 L Albumin 2.9 L Impressions: Abdomen/Pelvis CT 12/05/19 00:00 IMPRESSION: 1. Extensive inflammation involving the sigmoid colon in association with diverticula consistent with diverticulitis. This results in inflammation and narrowing of the small bowel adjacent to the colon and a subsequent partial small bowel obstruction. 2. Fatty infiltration of the liver. 3. Mild volume loss in the lung bases bilaterally. THIS REPORT CONTAINS FINDINGS THAT MAY BE CRITICAL TO PATIENT CARE: The findings were verbally discussed via telephone conference with CYRUS MARTIN at 12:05 AM CDT on 12/06/2019 . Acute Abdomen Series 12/05/19 20:40 IMPRESSION: Findings suggesting developing small bowel obstruction Abdomen X-Ray 12/06/19 00:00 IMPRESSION: Increased dilated small bowel loops throughout the central abdomen measuring up to 4.7 cm. There has been progression of oral contrast now noted throughout the proximal colon suggestive of partial/ intermittent obstructive process versus localized ileus. KUB X-Ray 12/07/19 14:55 IMPRESSION: NG tube has been placed. No other interval change. Persistent small-bowel distention. Assessment & Plan - Plan Summary Plan Summary: ng placed yesterday now with bmx2 yesterday feels less distended ng op 200cc wbc 15.9 today up from 11.7 ovrall he feels better will cont ng today cont iv abx.
[2019-12-08] MEDS: INSULIN REG, HUMAN 100 UNIT/ML 3 ML VIAL (PYX) SUBCUT SCH ×2 (07:38→17:08)
[2019-12-08] MEDS: PANTOPRAZOLE SODIUM 40 MG VIAL IV SCH (10:01)
[2019-12-08] MEDS: ENOXAPARIN SODIUM INJ 40 MG/0.4 ML DISP.SYRIN SUBCUT SCH (10:01)
[2019-12-08] MEDS: CIPROFLOXACIN 400 MG/D5W RTU 400 MG/200 ML RTUPB IV SCH ×2 (11:00→21:38)
--- NOTE | 2019-12-08 12:11 | PDOC PROGRESS REPORT ---
Subjective Progress Note for:: 12/08/19 Subjective:: 64 year old male his only past medical history is alcoholism. He reports that he felt fine . Friday he was having difficulty having a bowel movement. The pain began on Friday and worsened. On Friday he was having diarrhea and lost his appetite. Friday he felt better transiently but then got much worse. He started having fever and chills. His abdominal pain was increasing. He had had nothing by mouth for almost 2 days. He then proceeded to the emergency department. Evaluation revealed a normal white blood cell count but his hemoglobin was 19.2 with a hematocrit of 55.6. Platelets were normal at 237. His chemistry profile showed an elevated glucose at 178 with a total bilirubin of 2.2. CT scan of the abdomen revealed diverticulitis. He was referred to the hospital service for admission. 12/07/2019 patient went for a KUB today report came back as persistent gaseous distention of proximal and mid small bowel loops. Representing ileus. I discussed the plan with Dr. Reed he recommended small bowel series with Grastrografin. If it is abnormal we are going to consult him tomorrow. he does not have any bowel movement so far. 12/08/2019-surgical consult was requested yesterday, Dr. Reed evaluated the patient he thinks patient has perforated diverticulum without peritonitis. He recommended NG tube and to continue IV antibiotic therapy. Patient doing extremely well. He has a good bowel movements from last night. Plan is to keep the NG tube and continue the IV antibiotic therapy at this time. Blood cultures are negative. Reason For Visit: DIVERTICULITIS,DEHYDRATION,POLYCYTHEMIA,ABDOMINAL Physical Exam Vital Signs: Temp Pulse Resp BP Pulse Ox 97.7 F 90 17 148/88 H 97 12/08/19 06:50 12/08/19 06:50 12/08/19 06:50 12/08/19 06:50 12/08/19 06:50 Intake & Output 12/07/19 12/08/19 12/09/19 06:59 06:59 06:59 Intake Total 3547 1800 100 Balance 3547 1800 100 Weight 60.6 kg 64.1 kg General appearance: PRESENT: no acute distress, well-developed Head exam: PRESENT: atraumatic Eye exam: PRESENT: PERRLA Ear exam: PRESENT: normal external ear exam Mouth exam: PRESENT: moist, tongue midline Throat exam: PRESENT: other - NG tube in place. Neck exam: ABSENT: carotid bruit, JVD, lymphadenopathy, thyromegaly Respiratory exam: PRESENT: decreased breath sounds Cardiovascular exam: PRESENT: RRR. ABSENT: diastolic murmur, rubs, systolic murmur Pulses: PRESENT: normal dorsalis pedis pul GI/Abdominal exam: PRESENT: distended, guarding, mass, tenderness, other - Bowel sounds are sluggish.. ABSENT: organolmegaly, rebound Rectal exam: PRESENT: deferred Extremities exam: PRESENT: full ROM. ABSENT: calf tenderness, clubbing, pedal edema Neurological exam: PRESENT: alert, awake, oriented to person, oriented to place, oriented to time, oriented to situation, CN II-XII grossly intact. ABSENT: motor sensory deficit Psychiatric exam: PRESENT: appropriate affect, normal mood. ABSENT: homicidal ideation, suicidal ideation Results Laboratory Results: 12/08/19 04:07 12/08/19 04:07 12/08/19 12/08/19 04:07 04:07 WBC 15.9 H RBC 4.13 L Hgb 15.1 Hct 43.5 MCV 105 H MCH 36.4 H MCHC 34.6 RDW 12.7 Plt Count 230 Seg Neutrophils % Not Reportable Sodium 135.5 L Potassium 4.0 Chloride 104 Carbon Dioxide 23 Anion Gap 9 BUN 10 Creatinine 0.61 Est GFR ( Amer) > 60 Glucose 93 Calcium 8.5 Magnesium 2.0 Total Bilirubin 1.0 AST 39 Alkaline Phosphatase 78 Total Protein 5.7 L Albumin 2.9 L Impressions: Abdomen/Pelvis CT 12/05/19 00:00 IMPRESSION: 1. Extensive inflammation involving the sigmoid colon in association with diverticula consistent with diverticulitis. This results in inflammation and narrowing of the small bowel adjacent to the colon and a subsequent partial small bowel obstruction. 2. Fatty infiltration of the liver. 3. Mild volume loss in the lung bases bilaterally. THIS REPORT CONTAINS FINDINGS THAT MAY BE CRITICAL TO PATIENT CARE: The findings were verbally discussed via telephone conference with CYRUS MARTIN at 12:05 AM CDT on 12/06/2019 . Acute Abdomen Series 12/05/19 20:40 IMPRESSION: Findings suggesting developing small bowel obstruction Abdomen X-Ray 12/06/19 00:00 IMPRESSION: Increased dilated small bowel loops throughout the central abdomen measuring up to 4.7 cm. There has been progression of oral contrast now noted throughout the proximal colon suggestive of partial/ intermittent obstructive process versus localized ileus. KUB X-Ray 12/07/19 14:55 IMPRESSION: NG tube has been placed. No other interval change. Persistent small-bowel distention. Assessment and Plan - Diagnosis (1) Diverticulitis Is this a current diagnosis for this admission?: Yes Plan: 12/06/2019 Extensive inflammatory changes by CT scan. So much so that it may be causing a partial small bowel obstruction. Ciprofloxacin and metronidazole have begun. Patient will be n.p.o. for the time being. Aggressive IV fluids. 12/07/2019-patient admitted with diverticulitis and developed a small bowel obstruction. KUB done this morning indicating persistent distended bowels. Dr. Reed was consulted and he recommended small bowel series with Grastrografin. Needed surgery will be consulted tomorrow. Patient is on Cipro and Flagyl plan is to continue the antibiotic therapy at this time. 12/08/2019-patient admitted with diverticulitis, Dr. Reed thinks it is a perforated diverticulum. NG tube was placed yesterday patient is doing much better today. Patient has a couple of good bowel movements last night. Plan is to continue the NG tube and IV antibiotic therapy at this time. No signs of peritonitis at the time of examination. (2) Partial small bowel obstruction Is this a current diagnosis for this admission?: Yes Plan: 12/06/2019 It appears to be related to the inflammation in the colon. The patient will be at bowel rest. Will monitor closely. If appropriate we will order a surgical consult. 12/07/2019-patient has persistent small bowel obstruction. Plan to do the small bowel series with Grastrografin. 1120-patient has small bowel obstruction with perforated diverticulum. As per Dr. Reed recommendations Gastrografin study is canceled. (3) Polycythemia Is this a current diagnosis for this admission?: No (4) Abdominal pain Qualifiers: Abdominal location: generalized Qualified Code(s): R10.84 - Generalized abdominal pain Is this a current diagnosis for this admission?: Yes Plan: 12/06/2019 Secondary to diverticulitis. IV morphine has been ordered. 12/07/2019-patient complained of abdominal pain at the time of admission. Denies any abdominal pain per se complaining of mild pain on gentle palpation. Rebound tenderness present. No guarding is present. 12/08/19-patient with NG tube abdomen is less distended, less tender compared to yesterday. Patient denies any pains this morning. (5) Tobacco dependence due to cigarettes Is this a current diagnosis for this admission?: No
[2019-12-08] MEDS: DIAZEPAM INJ 10 MG/2 ML DISP.SYRIN IV SCH (21:24)
[2019-12-09] MEDS: METRONIDAZOLE 500 MG/NS RTU 500 MG/100 ML RTUPB IV SCH ×4 (02:13→20:25)
[2019-12-09] MEDS: NORMAL SALINE 1000 ML 1,000 ML IV PRN (05:32)
[2019-12-09 05:35] LABS: HEMATOCRIT 40.8 % (37.9-51.0); HEMOGLOBIN 14.6 g/dL (13.5-17.0); MEAN CORPUSCULAR HEMOGLOBIN 36.8 pg (27.0-33.4); MEAN CORPUSCULAR HGB CONC 35.7 g/dL (32.0-36.0); MEAN CORPUSCULAR VOLUME 103 fl (80-97); PLATELET COUNT 248 10^3/uL (150-450); RED BLOOD COUNT 3.95 10^6/uL (4.35-5.55); RED CELL DISTRIBUTION WIDTH 12.8 % (11.5-14.0); WHITE BLOOD COUNT 11.7 10^3/uL (4.0-10.5)
[2019-12-09 05:57] LABS: ALBUMIN 2.5 g/dL (3.5-5.0); ALKALINE PHOSPHATASE 60 U/L (38-126); ANION GAP 12 (5-19); ASPARTATE AMINO TRANSFERASE 34 U/L (17-59); BILIRUBIN,DIRECT 0.2 mg/dL (0.0-0.4); BILIRUBIN,TOTAL 0.8 mg/dL (0.2-1.3); BLOOD UREA NITROGEN 7 mg/dL (7-20); CALCIUM 7.9 mg/dL (8.4-10.2); CARBON DIOXIDE 20 mmol/L (22-30); CHLORIDE 106 mmol/L (98-107); GLUCOSE 70 mg/dL (75-110); POTASSIUM 3.5 mmol/L (3.6-5.0); TOTAL PROTEIN 4.9 g/dL (6.3-8.2)
[2019-12-09 06:43] LABS: ABSOLUTE LYMPHOCYTES# (MANUAL) 0.2 10^3/uL (0.5-4.7); ABSOLUTE MONOCYTES # (MANUAL) 1.4 10^3/uL (0.1-1.4); BAND NEUTROPHILS % (MANUAL) 3 % (3-5); BASOPHILS % (MANUAL) 0 % (0-2); EOSINOPHILS % (MANUAL) 2 % (0-6); LYMPHOCYTES % (MANUAL) 2 % (13-45); MONOCYTES % (MANUAL) 12 % (3-13); SEGMENTED NEUTROPHILS % (MAN) 81 % (42-78); TOTAL CELLS COUNTED 100
[2019-12-09 06:44] LABS: OVALOCYTES SLIGHT; PLATELET COMMENT ADEQUATE; POIKILOCYTOSIS SLIGHT; TOXIC GRANULATION SLIGHT
[2019-12-09] MEDS: INSULIN REG, HUMAN 100 UNIT/ML 3 ML VIAL (PYX) SUBCUT SCH ×2 (08:02→16:33)
[2019-12-09] MEDS: PANTOPRAZOLE SODIUM 40 MG VIAL IV SCH (09:15)
[2019-12-09] MEDS: ENOXAPARIN SODIUM INJ 40 MG/0.4 ML DISP.SYRIN SUBCUT SCH (09:16)
[2019-12-09] MEDS: CIPROFLOXACIN 400 MG/D5W RTU 400 MG/200 ML RTUPB IV SCH ×2 (09:16→21:19)
--- NOTE | 2019-12-09 11:17 | PDOC PROGRESS REPORT ---
Subjective Progress Note for:: 12/09/19 Reason For Visit: DIVERTICULITIS,DEHYDRATION,POLYCYTHEMIA,ABDOMINAL Patient feels better, had small bowel movement; no nausea or vomiting. Minimal out nasogastric tube overnight. Physical Exam Vital Signs: Temp Pulse Resp BP Pulse Ox 97.3 F 95 18 138/81 H 97 12/08/19 23:25 12/08/19 23:25 12/08/19 23:25 12/08/19 23:25 12/08/19 23:25 Intake & Output 12/08/19 12/09/19 12/10/19 06:59 06:59 06:59 Intake Total 2800 800 300 Output Total 1200 Balance 2800 -400 300 Weight 64.1 kg 67.5 kg General appearance: PRESENT: no acute distress GI/Abdominal exam: PRESENT: other - Distended, mild tympany; mild left lower quadrant tenderness. No peritoneal signs no rigidity. Results Laboratory Results: 12/09/19 04:40 12/09/19 04:40 12/09/19 12/09/19 04:40 04:40 WBC 11.7 H RBC 3.95 L Hgb 14.6 Hct 40.8 MCV 103 H MCH 36.8 H MCHC 35.7 RDW 12.8 Plt Count 248 Seg Neutrophils % Not Reportable Sodium 137.6 Potassium 3.5 L Chloride 106 Carbon Dioxide 20 L Anion Gap 12 BUN 7 Creatinine 0.63 Est GFR ( Amer) > 60 Glucose 70 L Calcium 7.9 L Magnesium 2.0 Total Bilirubin 0.8 AST 34 Alkaline Phosphatase 60 Total Protein 4.9 L Albumin 2.5 L Impressions: Abdomen/Pelvis CT 12/05/19 00:00 IMPRESSION: 1. Extensive inflammation involving the sigmoid colon in association with diverticula consistent with diverticulitis. This results in inflammation and narrowing of the small bowel adjacent to the colon and a subsequent partial small bowel obstruction. 2. Fatty infiltration of the liver. 3. Mild volume loss in the lung bases bilaterally. THIS REPORT CONTAINS FINDINGS THAT MAY BE CRITICAL TO PATIENT CARE: The findings were verbally discussed via telephone conference with CYRUS MARTIN at 12:05 AM CDT on 12/06/2019 . Acute Abdomen Series 12/05/19 20:40 IMPRESSION: Findings suggesting developing small bowel obstruction Abdomen X-Ray 12/06/19 00:00 IMPRESSION: Increased dilated small bowel loops throughout the central abdomen measuring up to 4.7 cm. There has been progression of oral contrast now noted throughout the proximal colon suggestive of partial/ intermittent obstructive process versus localized ileus. KUB X-Ray 12/07/19 14:55 IMPRESSION: NG tube has been placed. No other interval change. Persistent small-bowel distention. Assessment & Plan - Diagnosis (1) Abdominal pain Qualifiers: Abdominal location: generalized Is this a current diagnosis for this admission?: Yes Plan: Impression: Clinically improved abdominal pain secondary to a sigmoid diverticulitis; leukocytosis resolved; mild ileus Recommendations: 1. Clamp NG tube; will remove if tolerated well 2. Up and ambulating; will hold narcotics to facilitate ileus recovery. (2) Dehydration Is this a current diagnosis for this admission?: Yes (3) Diverticulitis Is this a current diagnosis for this admission?: Yes
--- NOTE | 2019-12-09 11:59 | PDOC PROGRESS REPORT ---
Subjective Progress Note for:: 12/09/19 Subjective:: 64 year old male his only past medical history is alcoholism. He reports that he felt fine . Friday he was having difficulty having a bowel movement. The pain began on Friday and worsened. On Friday he was having diarrhea and lost his appetite. Friday he felt better transiently but then got much worse. He started having fever and chills. His abdominal pain was increasing. He had had nothing by mouth for almost 2 days. He then proceeded to the emergency department. Evaluation revealed a normal white blood cell count but his hemoglobin was 19.2 with a hematocrit of 55.6. Platelets were normal at 237. His chemistry profile showed an elevated glucose at 178 with a total bilirubin of 2.2. CT scan of the abdomen revealed diverticulitis. He was referred to the hospital service for admission. 12/07/2019 patient went for a KUB today report came back as persistent gaseous distention of proximal and mid small bowel loops. Representing ileus. I discussed the plan with Dr. Reed he recommended small bowel series with Grastrografin. If it is abnormal we are going to consult him tomorrow. he does not have any bowel movement so far. 12/08/2019-surgical consult was requested yesterday, Dr. Reed evaluated the patient he thinks patient has perforated diverticulum without peritonitis. He recommended NG tube and to continue IV antibiotic therapy. Patient doing extremely well. He has a good bowel movements from last night. Plan is to keep the NG tube and continue the IV antibiotic therapy at this time. Blood cultures are negative. 12/09/2019-patient is doing well. Minimal output through the NG tube. Surgical team follow-up was done this morning NG tube is clamped. Plan is to remove the NG tube either today or tomorrow. Patient's abdomen is less distended less tender less painful. Patient having the bowel movements. Blood sugars are running low plan is to change IV fluids from normal saline to D5 half normal s ericka at 75 cc/h. Reason For Visit: DIVERTICULITIS,DEHYDRATION,POLYCYTHEMIA,ABDOMINAL Physical Exam Vital Signs: Temp Pulse Resp BP Pulse Ox 97.3 F 95 18 138/81 H 97 12/08/19 23:25 12/08/19 23:25 12/08/19 23:25 12/08/19 23:25 12/08/19 23:25 Intake & Output 12/08/19 12/09/19 12/10/19 06:59 06:59 06:59 Intake Total 2800 800 300 Output Total 1200 Balance 2800 -400 300 Weight 64.1 kg 67.5 kg General appearance: PRESENT: no acute distress, well-developed Head exam: PRESENT: atraumatic Eye exam: PRESENT: PERRLA Mouth exam: PRESENT: moist, tongue midline Teeth exam: PRESENT: poor dentation Throat exam: PRESENT: other - NG tube which was clamped. Neck exam: ABSENT: carotid bruit, JVD, lymphadenopathy, thyromegaly Respiratory exam: PRESENT: decreased breath sounds Cardiovascular exam: PRESENT: RRR. ABSENT: diastolic murmur, rubs, systolic murmur GI/Abdominal exam: PRESENT: normal bowel sounds, soft. ABSENT: distended, guarding, mass, organolmegaly, rebound, tenderness Rectal exam: PRESENT: deferred Extremities exam: PRESENT: full ROM. ABSENT: calf tenderness, clubbing, pedal edema Results Laboratory Results: 12/09/19 04:40 12/09/19 04:40 12/09/19 12/09/19 04:40 04:40 WBC 11.7 H RBC 3.95 L Hgb 14.6 Hct 40.8 MCV 103 H MCH 36.8 H MCHC 35.7 RDW 12.8 Plt Count 248 Seg Neutrophils % Not Reportable Sodium 137.6 Potassium 3.5 L Chloride 106 Carbon Dioxide 20 L Anion Gap 12 BUN 7 Creatinine 0.63 Est GFR ( Amer) > 60 Glucose 70 L Calcium 7.9 L Magnesium 2.0 Total Bilirubin 0.8 AST 34 Alkaline Phosphatase 60 Total Protein 4.9 L Albumin 2.5 L Impressions: Abdomen/Pelvis CT 12/05/19 00:00 IMPRESSION: 1. Extensive inflammation involving the sigmoid colon in association with diverticula consistent with diverticulitis. This results in inflammation and narrowing of the small bowel adjacent to the colon and a subsequent partial small bowel obstruction. 2. Fatty infiltration of the liver. 3. Mild volume loss in the lung bases bilaterally. THIS REPORT CONTAINS FINDINGS THAT MAY BE CRITICAL TO PATIENT CARE: The findings were verbally discussed via telephone conference with CYRUS MARTIN at 12:05 AM CDT on 12/06/2019 . Acute Abdomen Series 12/05/19 20:40 IMPRESSION: Findings suggesting developing small bowel obstruction Abdomen X-Ray 12/06/19 00:00 IMPRESSION: Increased dilated small bowel loops throughout the central abdomen measuring up to 4.7 cm. There has been progression of oral contrast now noted throughout the proximal colon suggestive of partial/ intermittent obstructive process versus localized ileus. KUB X-Ray 12/07/19 14:55 IMPRESSION: NG tube has been placed. No other interval change. Persistent small-bowel distention. Assessment and Plan - Diagnosis (1) Diverticulitis Is this a current diagnosis for this admission?: Yes Plan: 12/06/2019 Extensive inflammatory changes by CT scan. So much so that it may be causing a partial small bowel obstruction. Ciprofloxacin and metronidazole have begun. Patient will be n.p.o. for the time being. Aggressive IV fluids. 12/07/2019-patient admitted with diverticulitis and developed a small bowel obstruction. KUB done this morning indicating persistent distended bowels. Dr. Reed was consulted and he recommended small bowel series with Grastrografin. Needed surgery will be consulted tomorrow. Patient is on Cipro and Flagyl plan is to continue the antibiotic therapy at this time. 12/08/2019-patient admitted with diverticulitis, Dr. Reed thinks it is a perforated diverticulum. NG tube was placed yesterday patient is doing much better today. Patient has a couple of good bowel movements last night. Plan is to continue the NG tube and IV antibiotic therapy at this time. No signs of peritonitis at the time of examination. 12/09/19-doing well walking around in the hallway. NG tube is clamped. To remove the NG tube today and IV fluids are switched to D5 half-normal saline. To hold morphine to improve his bowel movements. (2) Partial small bowel obstruction Is this a current diagnosis for this admission?: Yes Plan: 12/06/2019 It appears to be related to the inflammation in the colon. The patient will be at bowel rest. Will monitor closely. If appropriate we will order a surgical consult. 12/07/2019-patient has persistent small bowel obstruction. Plan to do the small bowel series with Grastrografin. 12/08/19-patient has small bowel obstruction with perforated diverticulum. As per Dr. Reed recommendations Gastrografin study is canceled. -partial bowel obstruction is resolving. NG tube is clamped. Surgical team on board. (3) Polycythemia Is this a current diagnosis for this admission?: No Plan: 12/06/2019 Likely secondary to smoking and exaggerated with the dehydration. Monitor hemoglobin with IV fluids. This should dilute the hemoglobin hopefully back to the normal range. (4) Abdominal pain Qualifiers: Abdominal location: generalized Qualified Code(s): R10.84 - Generalized abdominal pain Is this a current diagnosis for this admission?: Yes Plan: Impression: Clinically improved abdominal pain secondary to a sigmoid diverticulitis; leukocytosis resolved; mild ileus Recommendations: 1. Clamp NG tube; will remove if tolerated well 2. Up and ambulating; will hold narcotics to facilitate ileus recovery. (5) Tobacco dependence due to cigarettes Is this a current diagnosis for this admission?: No Plan: 12/06/2019 Have nicotine patch available. 05/08/2020-smoking counseling was provided for more than 20 minutes. Strongly advised to quit smoking.
[2019-12-09] MEDS: DEXTROSE 5%-1/2 NORMAL SALINE 1,000 ML IV PRN (13:09)
[2019-12-09] MEDS ORDERED: ACETAMINOPHEN SOLN 325 MG/10.15 ML UDCUP NG PRN (13:38)
[2019-12-09] MEDS ORDERED: PROMETHAZINE HCL INJ 25 MG/1 ML VIAL IV PRN (14:00)
[2019-12-09] MEDS: DIAZEPAM INJ 10 MG/2 ML DISP.SYRIN IV SCH (21:19)
[2019-12-10] MEDS: METRONIDAZOLE 500 MG/NS RTU 500 MG/100 ML RTUPB IV SCH ×4 (03:07→20:32)
[2019-12-10 04:58] LABS: ABSOLUTE BASOPHILS # (AUTO) 0.1 10^3/uL (0.0-0.2); ABSOLUTE EOSINOPHILS # (AUTO) 0.2 10^3/uL (0.0-0.6); ABSOLUTE LYMPHOCYTES (AUTO) 0.7 10^3/uL (0.5-4.7); ABSOLUTE MONOCYTES (AUTO) 1.7 10^3/uL (0.1-1.4); ABSOLUTE NEUT (AUTO) 9.4 10^3/uL (1.7-8.2); BASOPHILS % (AUTO) 0.5 % (0-2); EOSINOPHILS % (AUTO) 1.3 % (0-6); HEMATOCRIT 42.7 % (37.9-51.0); HEMOGLOBIN 14.8 g/dL (13.5-17.0); LYMPHOCYTES % (AUTO) 5.5 % (13-45); MEAN CORPUSCULAR HEMOGLOBIN 35.5 pg (27.0-33.4); MEAN CORPUSCULAR HGB CONC 34.6 g/dL (32.0-36.0); MEAN CORPUSCULAR VOLUME 103 fl (80-97); MONOCYTES % (AUTO) 13.9 % (3-13); PLATELET COUNT 299 10^3/uL (150-450); RED BLOOD COUNT 4.15 10^6/uL (4.35-5.55); SEGMENTED NEUTROPHILS % (AUTO) 78.8 % (42-78); TOTAL CELLS COUNTED % (AUTO) 100 %; WHITE BLOOD COUNT 11.9 10^3/uL (4.0-10.5)
[2019-12-10 05:15] LABS: ALBUMIN 2.5 g/dL (3.5-5.0); ALKALINE PHOSPHATASE 64 U/L (38-126); ANION GAP 12 (5-19); ASPARTATE AMINO TRANSFERASE 35 U/L (17-59); BILIRUBIN,DIRECT 0.3 mg/dL (0.0-0.4); BILIRUBIN,TOTAL 0.7 mg/dL (0.2-1.3); BLOOD UREA NITROGEN 6 mg/dL (7-20); CALCIUM 7.9 mg/dL (8.4-10.2); CARBON DIOXIDE 21 mmol/L (22-30); CHLORIDE 104 mmol/L (98-107); GLUCOSE 93 mg/dL (75-110); TOTAL PROTEIN 5.2 g/dL (6.3-8.2)
[2019-12-10] MEDS: POTASSIUM CHLORIDE 20 MEQ/50 ML RTU IV SCH ×2 (05:57→08:23)
[2019-12-10] MEDS: INSULIN REG, HUMAN 100 UNIT/ML 3 ML VIAL (PYX) SUBCUT SCH ×2 (08:12→15:10)
[2019-12-10] MEDS: DEXTROSE 5%-1/2 NORMAL SALINE 1,000 ML IV PRN (08:51)
--- NOTE | 2019-12-10 09:14 | PDOC PROGRESS REPORT ---
Subjective Progress Note for:: 12/10/19 Subjective:: feels better, passing stool and flatus Reason For Visit: DIVERTICULITIS,DEHYDRATION,POLYCYTHEMIA,ABDOMINAL Physical Exam Vital Signs: Temp Pulse Resp BP Pulse Ox 98.5 F 95 18 151/81 H 94 12/09/19 15:16 12/09/19 15:16 12/09/19 15:16 12/09/19 15:16 12/09/19 15:16 Intake & Output 12/09/19 12/10/19 12/11/19 06:59 06:59 06:59 Intake Total 800 1800 50 Output Total 1200 1350 Balance -400 450 50 Weight 67.5 kg 57.8 kg General appearance: PRESENT: no acute distress Head exam: PRESENT: normocephalic Eye exam: PRESENT: EOMI Ear exam: PRESENT: normal external ear exam Mouth exam: PRESENT: moist Neck exam: PRESENT: full ROM Respiratory exam: PRESENT: clear to auscultation carola Cardiovascular exam: PRESENT: RRR Pulses: PRESENT: normal femoral pulses, normal dorsalis pedis pul Vascular exam: PRESENT: normal capillary refill Breast: PRESENT: Normal GI/Abdominal exam: PRESENT: soft Rectal exam: PRESENT: deferred Extremities exam: PRESENT: full ROM Musculoskeletal exam: PRESENT: full ROM Neurological exam: PRESENT: alert, awake, oriented to person, oriented to place Psychiatric exam: PRESENT: appropriate affect Skin exam: PRESENT: dry Results Laboratory Results: 12/10/19 04:16 12/10/19 04:16 12/10/19 12/10/19 04:16 04:16 WBC 11.9 H RBC 4.15 L Hgb 14.8 Hct 42.7 MCV 103 H MCH 35.5 H MCHC 34.6 RDW 13.0 Plt Count 299 Seg Neutrophils % 78.8 H Sodium 136.9 L Potassium 3.0 L* Chloride 104 Carbon Dioxide 21 L Anion Gap 12 BUN 6 L Creatinine 0.55 Est GFR ( Amer) > 60 Glucose 93 Calcium 7.9 L Magnesium 1.9 Total Bilirubin 0.7 AST 35 Alkaline Phosphatase 64 Total Protein 5.2 L Albumin 2.5 L Impressions: Abdomen/Pelvis CT 12/05/19 00:00 IMPRESSION: 1. Extensive inflammation involving the sigmoid colon in association with diverticula consistent with diverticulitis. This results in inflammation and narrowing of the small bowel adjacent to the colon and a subsequent partial small bowel obstruction. 2. Fatty infiltration of the liver. 3. Mild volume loss in the lung bases bilaterally. THIS REPORT CONTAINS FINDINGS THAT MAY BE CRITICAL TO PATIENT CARE: The findings were verbally discussed via telephone conference with CYRUS MARTIN at 12:05 AM CDT on 12/06/2019 . Acute Abdomen Series 12/05/19 20:40 IMPRESSION: Findings suggesting developing small bowel obstruction Abdomen X-Ray 12/06/19 00:00 IMPRESSION: Increased dilated small bowel loops throughout the central abdomen measuring up to 4.7 cm. There has been progression of oral contrast now noted throughout the proximal colon suggestive of partial/ intermittent obstructive process versus localized ileus. KUB X-Ray 12/07/19 14:55 IMPRESSION: NG tube has been placed. No other interval change. Persistent sm all-bowel distention. Assessment & Plan - Plan Summary Plan Summary: diverticulitis with sbo now resolving will start diet today as he has return of bowel function
[2019-12-10] MEDS: POTASSI CL 20 MEQ/50 ML RIDER 20 MEQ/50 ML RTUPB IV SCH (10:06)
[2019-12-10] MEDS: ENOXAPARIN SODIUM INJ 40 MG/0.4 ML DISP.SYRIN SUBCUT SCH (10:07)
[2019-12-10] MEDS: PANTOPRAZOLE SODIUM 40 MG VIAL IV SCH (10:11)
--- NOTE | 2019-12-10 10:18 | PDOC PROGRESS REPORT ---
Subjective Progress Note for:: 12/10/19 Subjective:: 64 year old male his only past medical history is alcoholism. He reports that he felt fine . Friday he was having difficulty having a bowel movement. The pain began on Friday and worsened. On Friday he was having diarrhea and lost his appetite. Friday he felt better transiently but then got much worse. He started having fever and chills. His abdominal pain was increasing. He had had nothing by mouth for almost 2 days. He then proceeded to the emergency department. Evaluation revealed a normal white blood cell count but his hemoglobin was 19.2 with a hematocrit of 55.6. Platelets were normal at 237. His chemistry profile showed an elevated glucose at 178 with a total bilirubin of 2.2. CT scan of the abdomen revealed diverticulitis. He was referred to the hospital service for admission. 12/07/2019 patient went for a KUB today report came back as persistent gaseous distention of proximal and mid small bowel loops. Representing ileus. I discussed the plan with Dr. Reed he recommended small bowel series with Grastrografin. If it is abnormal we are going to consult him tomorrow. he does not have any bowel movement so far. 12/08/2019-surgical consult was requested yesterday, Dr. Reed evaluated the patient he thinks patient has perforated diverticulum without peritonitis. He recommended NG tube and to continue IV antibiotic therapy. Patient doing extremely well. He has a good bowel movements from last night. Plan is to keep the NG tube and continue the IV antibiotic therapy at this time. Blood cultures are negative. 12/09/2019-patient is doing well. Minimal output through the NG tube. Surgical team follow-up was done this morning NG tube is clamped. Plan is to remove the NG tube either today or tomorrow. Patient's abdomen is less distended less tender less painful. Patient having the bowel movements. Blood sugars are running low plan is to change IV fluids from normal saline to D5 half normal s ericka at 75 cc/h. 12/10/19-patient is doing well. NG tube is taken out. Has a bowel movement this morning. Seen by Dr. Reed and the patient was started on clear liquids today. The patient is doing well plan to discharge him on Friday. Reason For Visit: DIVERTICULITIS,DEHYDRATION,POLYCYTHEMIA,ABDOMINAL Physical Exam Vital Signs: Temp Pulse Resp BP Pulse Ox 98.3 F 86 16 153/93 H 97 12/10/19 08:17 12/10/19 08:17 12/10/19 08:17 12/10/19 08:17 12/10/19 08:17 Intake & Output 12/09/19 12/10/19 12/11/19 06:59 06:59 06:59 Intake Total 800 1800 50 Output Total 1200 1350 Balance -400 450 50 Weight 67.5 kg 57.8 kg General appearance: PRESENT: no acute distress, well-developed Head exam: PRESENT: atraumatic Eye exam: PRESENT: PERRLA Mouth exam: PRESENT: moist, tongue midline Teeth exam: PRESENT: poor dentation Neck exam: ABSENT: carotid bruit, JVD, lymphadenopathy, thyromegaly Respiratory exam: PRESENT: decreased breath sounds Cardiovascular exam: PRESENT: RRR. ABSENT: diastolic murmur, rubs, systolic murmur GI/Abdominal exam: PRESENT: normal bowel sounds, soft. ABSENT: distended, guarding, mass, organolmegaly, rebound, tenderness Rectal exam: PRESENT: deferred Extremities exam: PRESENT: full ROM. ABSENT: calf tenderness, clubbing, pedal edema Neurological exam: PRESENT: alert, awake, oriented to person, oriented to place, oriented to time, oriented to situation, CN II-XII grossly intact. ABSENT: motor sensory deficit Psychiatric exam: PRESENT: appropriate affect, normal mood. ABSENT: homicidal ideation, suicidal ideation Results Laboratory Results: 12/10/19 04:16 12/10/19 04:16 12/10/19 12/10/19 04:16 04:16 WBC 11.9 H RBC 4.15 L Hgb 14.8 Hct 42.7 MCV 103 H MCH 35.5 H MCHC 34.6 RDW 13.0 Plt Count 299 Seg Neutrophils % 78.8 H Sodium 136.9 L Potassium 3.0 L* Chloride 104 Carbon Dioxide 21 L Anion Gap 12 BUN 6 L Creatinine 0.55 Est GFR ( Amer) > 60 Glucose 93 Calcium 7.9 L Magnesium 1.9 Total Bilirubin 0.7 AST 35 Alkaline Phosphatase 64 Total Protein 5.2 L Albumin 2.5 L Impressions: Abdomen/Pelvis CT 12/05/19 00:00 IMPRESSION: 1. Extensive inflammation involving the sigmoid colon in association with diverticula consistent with diverticulitis. This results in inflammation and narrowing of the small bowel adjacent to the colon and a subsequent partial small bowel obstruction. 2. Fatty infiltration of the liver. 3. Mild volume loss in the lung bases bilaterally. THIS REPORT CONTAINS FINDINGS THAT MAY BE CRITICAL TO PATIENT CARE: The findings were verbally discussed via telephone conference with CYRUS MARTIN at 12:05 AM CDT on 12/06/2019 . Acute Abdomen Series 12/05/19 20:40 IMPRESSION: Findings suggesting developing small bowel obstruction Abdomen X-Ray 12/06/19 00:00 IMPRESSION: Increased dilated small bowel loops throughout the central abdomen measuring up to 4.7 cm. There has been progression of oral contrast now noted throughout the proximal colon suggestive of partial/ intermittent obstructive process versus localized ileus. KUB X-Ray 12/07/19 14:55 IMPRESSION: NG tube has been placed. No other interval change. Persistent small-bowel distention. Assessment and Plan - Diagnosis (1) Diverticulitis Is this a current diagnosis for this admission?: Yes Plan: 12/06/2019 Extensive inflammatory changes by CT scan. So much so that it may be causing a partial small bowel obstruction. Ciprofloxacin and metronidazole have begun. Patient will be n.p.o. for the time being. Aggressive IV fluids. 12/07/2019-patient admitted with diverticulitis and developed a small bowel obstruction. KUB done this morning indicating persistent distended bowels. Dr. Reed was consulted and he recommended small bowel series with Grastrografin. Needed surgery will be consulted tomorrow. Patient is on Cipro and Flagyl plan is to continue the antibiotic therapy at this time. 12/08/2019-patient admitted with diverticulitis, Dr. Reed thinks it is a perforated diverticulum. NG tube was placed yesterday patient is doing much better today. Patient has a couple of good bowel movements last night. Plan is to continue the NG tube and IV antibiotic therapy at this time. No signs of peritonitis at the time of examination. 12/09/19-doing well walking around in the hallway. NG tube is clamped. To remove the NG tube today and IV fluids are switched to D5 half-normal saline. To hold morphine to improve his bowel movements. 12/10/2019-patient admitted with diverticulitis resolving. Receiving IV Flagyl and Cipro floxacillin. Afebrile. Cultures are negative. (2) Partial small bowel obstruction Is this a current diagnosis for this admission?: Yes Plan: 12/06/2019 It appears to be related to the inflammation in the colon. The patient will be at bowel rest. Will monitor closely. If appropriate we will order a surgical consult. 12/07/2019-patient has persistent small bowel obstruction. Plan to do the small bowel series with Grastrografin. 12/08/19-patient has small bowel obstruction with perforated diverticulum. As per Dr. Reed recommendations Gastrografin study is canceled. -partial bowel obstruction is resolving. NG tube is clamped. Surgical team on board. 12/10/2019 partial bowel obstruction associated with perforated diverticulum resolving. NG tube is removed. Patient able to tolerate the clear liquids this morning. He has good bowel movements this morning. Plan is to advance the diet as tolerated and to plan for discharge on Friday. (3) Polycythemia Is this a current diagnosis for this admission?: No Plan: 12/06/2019 Likely secondary to smoking and exaggerated with the dehydration. Monitor hemoglobin with IV fluids. This should dilute the hemoglobin hopefully back to the normal range. (4) Abdominal pain Qualifiers: Abdominal location: generalized Qualified Code(s): R10.84 - Generalized abdominal pain Is this a current diagnosis for this admission?: Yes Plan: Impression: Clinically improved abdominal pain secondary to a sigmoid divertic ulitis; leukocytosis resolved; mild ileus Recommendations: 1. Clamp NG tube; will remove if tolerated well 2. Up and ambulating; will hold narcotics to facilitate ileus recovery. 12/10/2019-patient admitted with abdominal pain secondary to diverticulitis/partial bowel obstruction. Denies any abdominal pain this morning. (5) Tobacco dependence due to cigarettes Is this a current diagnosis for this admission?: No
[2019-12-10] MEDS: CIPROFLOXACIN 400 MG/D5W RTU 400 MG/200 ML RTUPB IV SCH ×2 (11:12→21:49)
[2019-12-10] MEDS: DIAZEPAM INJ 10 MG/2 ML DISP.SYRIN IV SCH (21:48)
[2019-12-11] MEDS: METRONIDAZOLE 500 MG/NS RTU 500 MG/100 ML RTUPB IV SCH ×2 (02:01→08:39)
[2019-12-11] MEDS: DEXTROSE 5%-1/2 NORMAL SALINE 1,000 ML IV PRN (04:36)
[2019-12-11] MEDS: INSULIN REG, HUMAN 100 UNIT/ML 3 ML VIAL (PYX) SUBCUT SCH (07:42)
[2019-12-11 08:11] LABS: ANION GAP 9 (5-19); BLOOD UREA NITROGEN 3 mg/dL (7-20); CALCIUM 8.5 mg/dL (8.4-10.2); CARBON DIOXIDE 26 mmol/L (22-30); CHLORIDE 102 mmol/L (98-107); GLUCOSE 121 mg/dL (75-110); POTASSIUM 3.5 mmol/L (3.6-5.0)
--- NOTE | 2019-12-11 09:01 | PDOC DISCHARGE SUMMARY ---
General - Admit/Disc Date/PCP Admission Date/Primary Care Provider: 12/06/19 02:42 Discharge Date: 12/11/19 - Discharge Diagnosis Final Diagnosis: Diverticulitis with small bowel obstruction - Assessment Summary: This is 63-year-old male was admitted to the hospital on 12/05/2019 with increased abdominal distention nausea and vomiting and a diagnosis of small bowel obstruction versus ileus. He was admitted to the hospital to the medicine service. Following day consult was made for surgery to help management in with his ileus versus small bowel obstruction. Evaluation of the CT scan that was obtained in the emergency room showed a phlegmon in the left lower quadrant consistent with perforated diverticulitis with a loop of bowel that was adherent to the phlegmon resulting in a additional small bowel obstruction. NG tube was placed and patient improved his abdominal distention improved and he was started on IV antibiotics for perforated diverticulitis. Throughout the rest of the hospital course he slowly improved over the next 4 to 5 days he started passing flatus his NG tube was removed his white count remained normal he was continued on IV antibiotics and started on a clear liquid diet when he started passing bowel movements. That was slowly advanced to a soft diet at this time he is afebrile with stable vital signs he is tolerating full liquid to soft diet. He is remained afebrile his abdominal pain is resolved. He will be discharged home today on oral antibiotics for 10 additional days Bactrim and Flagyl will be given a follow-up appointment with surgery clinic in 7 to 10 days at which point arrangements will be made for continued follow-up and need for colonoscopy. Diagnosis is perforated diverticulitis with resultant small bowel obstruction - Additional Information Resuscitation Status: Full Code Discharge Diet: As Tolerated Discharge Activity: Activity As Tolerated Prescriptions: Sulfamethoxazole/Trimethoprim [Bactrim Ds Tablet] 1 each PO Q12HP PRN #20 tablet PRN Reason: Metronidazole [Flagyl 250 mg Tablet] 250 mg PO Q8 #30 tablet Home Medications: Metronidazole [Flagyl 250 mg Tablet] 250 mg PO Q8 #30 tablet 12/11/19 Sulfamethoxazole/Trimethoprim [Bactrim Ds Tablet] 1 each PO Q12HP PRN #20 tablet 12/11/19 History of Present Illiness History of Present Illness: AMARILIS AL is a 64 year old male Physical Exam Vital Signs: Temp Pulse Resp BP Pulse Ox 98.4 F 92 17 135/84 H 95 03/13/20 23:27 12/10/19 23:27 12/10/19 23:27 12/10/19 23:27 12/10/19 23:27 Intake & Output 12/10/19 12/11/19 12/12/19 06:59 06:59 06:59 Intake Total 1800 3700 Output Total 1350 2475 Balance 450 1225 Weight 57.8 kg 66.7 kg Results Laboratory Results: WBC 11.9 10^3/uL (4.0-10.5) H 12/10/19 04:16 RBC 4.15 10^6/uL (4.35-5.55) L 12/10/19 04:16 Hgb 14.8 g/dL (13.5-17.0) 12/10/19 04:16 Hct 42.7 % (37.9-51.0) 12/10/19 04:16 MCV 103 fl (80-97) H 12/10/19 04:16 MCH 35.5 pg (27.0-33.4) H 12/10/19 04:16 MCHC 34.6 g/dL (32.0-36.0) 12/10/19 04:16 RDW 13.0 % (11.5-14.0) 12/10/19 04:16 Plt Count 299 10^3/uL (150-450) 12/10/19 04:16 Lymph % (Auto) 5.5 % (13-45) L 12/10/19 04:16 [place] % (Auto) 13.9 % (3-13) H 12/10/19 04:16 Eos % (Auto) 1.3 % (0-6) 12/10/19 04:16 Baso % (Auto) 0.5 % (0-2) 12/10/19 04:16 Absolute Neuts (auto) 9.4 10^3/uL (1.7-8.2) H 12/10/19 04:16 Absolute Lymphs (auto) 0.7 10^3/uL (0.5-4.7) 12/10/19 04:16 Absolute Monos (auto) 1.7 10^3/uL (0.1-1.4) H 12/10/19 04:16 Absolute Eos (auto) 0.2 10^3/uL (0.0-0.6) 12/10/19 04:16 Absolute Basos (auto) 0.1 10^3/uL (0.0-0.2) 12/10/19 04:16 Total Counted 100 12/09/19 04:40 Seg Neutrophils % 78.8 % (42-78) H 12/10/19 04:16 Seg Neuts % (Manual) 81 % (42-78) H 12/09/19 04:40 Band Neutrophils % 3 % (3-5) 12/09/19 04:40 Lymphocytes % (Manual) 2 % (13-45) L 12/09/19 04:40 Monocytes % (Manual) 12 % (3-13) 12/09/19 04:40 Eosinophils % (Manual) 2 % (0-6) 12/09/19 04:40 Basophils % (Manual) 0 % (0-2) 12/09/19 04:40 Abs Neuts (Manual) 9.8 10^3/uL (1.7-8.2) H 12/09/19 04:40 Abs Lymphs (Manual) 0.2 10^3/uL (0.5-4.7) L 12/09/19 04:40 Abs Monocytes (Manual) 1.4 10^3/uL (0.1-1.4) 12/09/19 04:40 Absolute Eos (Manual) 0.2 10^3/uL (0.0-0.6) 12/09/19 04:40 Abs Basophils (Manual) 0.0 10^3/uL (0.0-0.2) 12/09/19 04:40 Toxic Granulation SLIGHT 12/09/19 04:40 Platelet Comment ADEQUATE 12/09/19 04:40 Poikilocytosis SLIGHT 12/09/19 04:40 Macrocytosis 1+ 12/09/19 04:40 Ovalocytes SLIGHT 12/09/19 04:40 RBC Morph Comment NORMO-CYTIC/CHROMIC 12/05/19 19:36 Sodium 136.5 mmol/L (137-145) L 12/11/19 07:27 Potassium 3.5 mmol/L (3.6-5.0) L 12/11/19 07:27 Chloride 102 mmol/L (98-107) 12/11/19 07:27 Carbon Dioxide 26 mmol/L (22-30) 12/11/19 07:27 Anion Gap 9 (5-19) 12/11/19 07:27 BUN 3 mg/dL (7-20) L 12/11/19 07:27 Creatinine 0.53 mg/dL (0.52-1.25) 12/11/19 07:27 Est GFR ( Amer) > 60 (>60) 12/11/19 07:27 Est GFR (MDRD) Non-Af > 60 (>60) 12/11/19 07:27 Glucose 121 mg/dL (75-110) H 12/11/19 07:27 POC Glucose 121 mg/dL (70-110) H 12/11/19 06:26 Hemoglobin A1c % 4.8 % (4.7-6.0) 12/07/19 04:53 Calcium 8.5 mg/dL (8.4-10.2) 12/11/19 07:27 Magnesium 1.9 mg/dL (1.6-2.3) 12/10/19 04:16 Total Bilirubin 0.7 mg/dL (0.2-1.3) 12/10/19 04:16 Direct Bilirubin 0.3 mg/dL (0.0-0.4) 12/10/19 04:16 Neonat Total Bilirubin Not Reportable 12/10/19 04:16 Neonat Direct Bilirubin Not Reportable 12/10/19 04:16 Neonat Indirect Bili Not Reportable 12/10/19 04:16 AST 35 U/L (17-59) 12/10/19 04:16 ALT 18 U/L (<50) 12/10/19 04:16 Alkaline Phosphatase 64 U/L (38-126) 12/10/19 04:16 Total Protein 5.2 g/dL (6.3-8.2) L 12/10/19 04:16 Albumin 2.5 g/dL (3.5-5.0) L 12/10/19 04:16 Lipase < 10.0 U/L (23-300) L 12/05/19 19:36 Urine Color TIFFANY 12/05/19 22:20 Urine Appearance SLIGHTLY-CLOUDY 12/05/19 22:20 Urine pH 5.0 (5.0-9.0) 12/05/19 22:20 Ur Specific [place] 1.030 12/05/19 22:20 Urine Protein 100 mg/dL (NEGATIVE) H 12/05/19 22:20 Urine Glucose (UA) 50 mg/dL (NEGATIVE) H 12/05/19 22:20 Urine Ketones 80 mg/dL (NEGATIVE) H 12/05/19 22:20 Urine Blood NEGATIVE (NEGATIVE) 12/05/19 22:20 Urine Nitrite NEGATIVE (NEGATIVE) 12/05/19 22:20 Urine Bilirubin SMALL (NEGATIVE) H 12/05/19 22:20 Urine Urobilinogen 4.0 mg/dL (<2.0) H 12/05/19 22:20 Ur Leukocyte Esterase NEGATIVE (NEGATIVE) 12/05/19 22:20 Urine WBC (Auto) 7 /HPF 12/05/19 22:20 Urine RBC (Auto) 3 /HPF 12/05/19 22:20 U Hyaline Cast (Auto) 4 /LPF 12/05/19 22:20 Squamous Epi Cells Auto 1 /HPF 12/05/19 22:20 Urine Mucus (Auto) MANY /LPF 12/05/19 22:20 Urine Ascorbic Acid 40 (NEGATIVE) H 12/05/19 22:20 Impressions: Abdomen/Pelvis CT 12/05/19 00:00 IMPRESSION: 1. Extensive inflammation involving the sigmoid colon in association with diverticula consistent with diverticulitis. This results in inflammation and narrowing of the small bowel adjacent to the colon and a subsequent partial small bowel obstruction. 2. Fatty infiltration of the liver. 3. Mild volume loss in the lung bases bilaterally. THIS REPORT CONTAINS FINDINGS THAT MAY BE CRITICAL TO PATIENT CARE: The findings were verbally discussed via telephone conference with CYRUS MARTIN at 12:05 AM CDT on 12/06/2019 . Acute Abdomen Series 12/05/19 20:40 IMPRESSION: Findings suggesting developing small bowel obstruction Abdomen X-Ray 12/06/19 00:00 IMPRESSION: Increased dilated small bowel loops throughout the central abdomen measuring up to 4.7 cm. There has been progression of oral contrast now noted throughout the proximal colon suggestive of partial/ intermittent obstructive process versus localized ileus. KUB X-Ray 12/07/19 00:00 IMPRESSION: Persistent gaseous distension of proximal and mid small bowel loops. Finding likely represent ileus. Partial small bowel obstruction considered less likely given that the oral contrast from CT last night is now in the colon. KUB X-Ray 12/07/19 14:55 IMPRESSION: NG tube has been placed. No other interval change. Persistent small-bowel distention.
[2019-12-11] MEDS: ENOXAPARIN SODIUM INJ 40 MG/0.4 ML DISP.SYRIN SUBCUT SCH (10:15)
[2019-12-11] MEDS: CIPROFLOXACIN 400 MG/D5W RTU 400 MG/200 ML RTUPB IV SCH (10:28)
[2019-12-11] MEDS: PANTOPRAZOLE SODIUM 40 MG VIAL IV SCH (10:28)
[2019-12-11 13:32] VITALS: BP 161/90
== END 2019-12-11 14:15 | disposition home or self-care (01) | DRG 389 ==
LOC: ER 19:24 → EH 12-06 02:42 → 4S 12-06 04:00
PROVIDERS: ADMIT Hospitalist; ATTEND Internal Medicine
PROC: 0D9670Z Drainage of Stomach with Drainage Device, Via Natural or Artificial Opening (ICD-10-PCS; principal; 2019-12-07)
DX: K56.690 Other partial intestinal obstruction (principal); K57.20 Diverticulitis of large intestine with perforation and abscess without bleeding; E86.0 Dehydration; D75.1 Secondary polycythemia; F17.210 Nicotine dependence, cigarettes, uncomplicated; F10.20 Alcohol dependence, uncomplicated; Z83.3 Family history of diabetes mellitus
CPT/HCPCS: 36415; 74018; 74019; 74022; 74177; 80048; 80053; 81001; 82962; 83036; 83690; 83735; 85025; 87040; 96361; 96374; 96375; 99284; C9113; J0744; J2270; J2405; J3360; J3480; J3490; J7030